=== PATIENT | female | born 1940 | race Caucasian/White ===

== ENCOUNTER 2022-02-20 02:55 | Day surgery (SDC) | payer OTHER ==
[2022-02-21] MEDS ORDERED: ATORVASTATIN CA20 MG PO (18:54)
[2022-02-21] MEDS ORDERED: Lisinopril2.5 MG PO (18:54)
[2022-02-21] MEDS ORDERED: MONDOXYNE NL100 MG PO (18:54)
[2022-02-21] MEDS ORDERED: Cleocin HCl150 MG (18:54)
[2022-02-21] MEDS ORDERED: LATANOPROST2.5 M3 (18:55)
[2022-02-21] MEDS ORDERED: SPIRONOLACTONE25 MG PO (18:55)
[2022-02-21] MEDS ORDERED: DORZOLAMIDE-TIM10 ML (18:55)
[2022-02-21] MEDS ORDERED: BRIMONIDINE TART5 M2 (18:55)
[2022-02-21] MEDS ORDERED: SOAANZ20 M1 PO (18:55)
[2022-02-21] MEDS ORDERED: OMEP20ER (18:55)
== END 2022-02-20 23:30 | disposition home or self-care (01) ==
LOC: WOUND 02:55
DX: L73.2 Hidradenitis suppurativa (principal); L98.412 Non-pressure chronic ulcer of buttock with fat layer exposed; Z88.8 Allergy status to other drugs, medicaments and biological substances; J45.909 Unspecified asthma, uncomplicated; E78.2 Mixed hyperlipidemia; Z95.2 Presence of prosthetic heart valve
CPT/HCPCS: G0463

== ENCOUNTER 2022-02-21 18:35 | Inpatient (IN) | payer OTHER ==
[~2022-02-21] VITALS: Ht 152.4 cm; Wt 47.6 kg
--- NOTE | 2022-02-21 00:55 | NUR ---
REPORT RECIEVED FROM ERICK AND AWAITING PT T/F TO ROOM 329.
[2022-02-21] MEDS ORDERED: Cleocin HCl150 MG (18:54)
[2022-02-21] MEDS ORDERED: ATORVASTATIN CA20 MG PO (18:54)
[2022-02-21] MEDS ORDERED: MONDOXYNE NL100 MG PO (18:54)
[2022-02-21] MEDS ORDERED: Lisinopril2.5 MG PO (18:54)
[2022-02-21] MEDS ORDERED: SPIRONOLACTONE25 MG PO (18:55)
[2022-02-21] MEDS ORDERED: OMEP20ER (18:55)
[2022-02-21] MEDS ORDERED: BRIMONIDINE TART5 M2 (18:55)
[2022-02-21] MEDS ORDERED: DORZOLAMIDE-TIM10 ML (18:55)
[2022-02-21] MEDS ORDERED: LATANOPROST2.5 M3 (18:55)
[2022-02-21] MEDS ORDERED: SOAANZ20 M1 PO (18:55)
[2022-02-21 19:25] LABS: BASOPHILS PERCENT AUTO 1 % (0-2); EOSINOPHILS ABSOLUTE AUTO 0.16 K/mm3 (0.00-0.68); EOSINOPHILS PERCENT AUTO 1 % (0-6); Hematocrit 23.2 % (33.0-51.0); Hemoglobin 7.1 g/dL (11.5-16.0); IMMATURE GRAN ABSOLUTE AUTO 0.16 K/mm3 (0.00-0.10); IMMATURE GRAN PERCENT AUTO 1 % (0-1); LYMPHOCYTES ABSOLUTE AUTO 0.81 K/mm3 (0.84-5.20); LYMPHOCYTES PERCENT AUTO 5 % (21-46); MONOCYTES ABSOLUTE AUTO 0.95 K/mm3 (0.16-1.47); MONOCYTES PERCENT AUTO 6 % (4-13); Mean Corpuscular HGB 26.4 pg (26.0-34.0); Mean Corpuscular HGB Conc 30.6 g/dL (31.5-36.5); Mean Corpuscular Volume 86 fL (80-100); NEUTROPHILS ABSOLUTE AUTO 14.33 K/mm3 (1.96-9.15); NEUTROPHILS PERCENT AUTO 87 % (41-73); Platelet Count 585 K/mm3 (150-400); RDW Coefficient Variation 16.7 % (11.7-14.2); RDW Standard Deviation 52.1 fL (35.1-46.3); Red Blood Cell Count 2.69 M/mm3 (3.80-5.20); White Blood Cell Count 16.51 K/mm3 (4.00-11.30)
[2022-02-21 19:27] LABS: Bun/Creatinine Ratio 37.3 (12.0-20.0); Calcium, Blood 8.6 mg/dL (8.5-10.1); Creatinine, Blood 1.42 mg/dL (0.40-1.00); Potassium, Blood 4.3 mmol/L (3.5-5.5)
[2022-02-21 19:52] LABS: Percent Saturation 9.1 % (15.0-50.0)
[2022-02-22 02:13] LABS: Source, Urine Clean Catch
[2022-02-22 02:16] LABS: Appearance, Urine Clear (Clear); Bilirubin, Urine Neg (Neg); Blood, Urine Neg (Neg); Glucose Qualitative, Urine Neg (Neg); Ketones, Urine Neg (Neg); Leukocyte Esterase, Urine 1+ (Neg); Nitrite, Urine Neg (Neg); Protein, Urine Neg (Neg); Urobilinogen, Urine NORM (Normal)
[2022-02-22 02:22] LABS: Color, Urine Pale Yellow (P-Yellow)
[2022-02-22 02:23] LABS: Red Blood Cells, Urine 0-2 /hpf (0-2); Squamous Epithelial Cells Rare /hpf (Few); White Blood Cells, Urine 0-2 /hpf (0-5)
[2022-02-22 02:24] LABS: Bacteria Many /hpf
--- NOTE | 2022-02-22 05:59 | NUR ---
T/F AND SUMMARY: PT T/F TO ROOM 329 AT 0137 VIA GURNEY. SHE'S A/OX4, WAS ORIENTED TO ROOM AND CALL SYSTEM AND IS PLEASANT/COOPERATIVE W/CARE. PT IS BLIND BUT CAN SEE SILHOUETTES SO CALL LIGHT WAS ALTERED FOR EASE OF USE. SHE'S UP W/FWW AND SBA FOR SAFETY. PT HAS PUREWIC CATHETER IN PLACE THAT REMAINS PATENT TO SUCTION FOR SBD PREVENTION AND PAIN W/MOBILITY. SHE'S HAD HIDRADENITIS SUPPURITIVA TO HER BUTTOCKS/RECTUM FOR X8 YEARS W/OPEN AREAS THAT ARE WEAPING HEMOSANGUINOUS DRAINAGE AT PRESENT. FENTANYL PRN WAS RECIEVED FOR PAIN CONTROL AND PT REPOSITIONS SELF FOR IMPROVED COMFORT. NONADHERENT DX WAS CHANGED PRN W/MODONNA PANTIES REPLACED AND LINEN CHANGED PRN. NS WAS COMMENCED AND IV ABX + 1UNIT PRBC'S WERE RECIEVED IN ER. NO ACUTE CHANGES, VSS/AFEBRILE. WCTM AND REPORT TO DAY RN.
[2022-02-22 06:20] LABS: BASOPHILS ABSOLUTE AUTO 0.06 K/mm3 (0.00-0.23); BASOPHILS PERCENT AUTO 1 % (0-2); EOSINOPHILS ABSOLUTE AUTO 0.14 K/mm3 (0.00-0.68); EOSINOPHILS PERCENT AUTO 1 % (0-6); Hematocrit 23.2 % (33.0-51.0); Hemoglobin 7.4 g/dL (11.5-16.0); IMMATURE GRAN ABSOLUTE AUTO 0.11 K/mm3 (0.00-0.10); IMMATURE GRAN PERCENT AUTO 1 % (0-1); LYMPHOCYTES ABSOLUTE AUTO 0.48 K/mm3 (0.84-5.20); LYMPHOCYTES PERCENT AUTO 4 % (21-46); MONOCYTES ABSOLUTE AUTO 0.81 K/mm3 (0.16-1.47); MONOCYTES PERCENT AUTO 8 % (4-13); Mean Corpuscular HGB 27.2 pg (26.0-34.0); Mean Corpuscular HGB Conc 31.9 g/dL (31.5-36.5); Mean Corpuscular Volume 85 fL (80-100); Mean Platelet Volume 7.8 fL (9.1-12.4); NEUTROPHILS PERCENT AUTO 85 % (41-73); Platelet Count 429 K/mm3 (150-400); RDW Coefficient Variation 16.1 % (11.7-14.2); RDW Standard Deviation 49.3 fL (35.1-46.3); Red Blood Cell Count 2.72 M/mm3 (3.80-5.20)
[2022-02-22 06:35] LABS: Albumin, Blood 1.7 g/dL (3.4-5.0); Albumin/Globulin Ratio 0.3 (0.8-1.8); Bilirubin, Total 0.2 mg/dL (0.1-1.0); Calcium, Blood 8.3 mg/dL (8.5-10.1); Potassium, Blood 3.9 mmol/L (3.5-5.5); Total Protein, Blood 6.7 g/dL (6.4-8.2)
[2022-02-22] MEDS ORDERED: ASCO500 PO (10:04)
[2022-02-22] MEDS ORDERED: ASPIR 8181 M1 PO (10:05)
[2022-02-22] MEDS ORDERED: Norco 5-325 Ta1 EACH PO (10:06)
[2022-02-22] MEDS ORDERED: Ferrous Sulfat324 MG PO (10:07)
[2022-02-22] MEDS ORDERED: METR59TL TOP (10:08)
--- NOTE | 2022-02-22 18:37 | NUR ---
PATIENT A/OX4, UP WITH 1 ASSIST AND FWW TO RESTROOM. VSS, ON RA. 20G IV TO R AC WNL AND SL. TOLERATING REGULAR DIET. DRESSINGS TO BUTTOCKS WOUND CHANGED X1 THIS AFTERNOON USING NONADHERENT DRESSING. STRESS INCONTINENCE WHEN SHE GETS UP, WEARS A PAD. SMALL BM THIS AM. LEGALLY BLIND AND NEEDS ASSISTANCE WITH MEAL SET UP, BUT IS ABLE TO FEED HERSELF. RECEIVING MAXIPIME TO TREAT CELLULITIS. Q4 HOUR FENTANYL USED TO TREAT BUTTOCK PAIN WITH STATED RELIEF. VERY PLEASANT AND COOPERATIVE WITH CARE. CALLS APPROPRIATELY FOR ASSISTANCE.
[2022-02-22 22:15] LABS: Vancomycin, Random 7.5 ug/mL
--- NOTE | 2022-02-23 05:09 | NUR ---
PT MEDICATED FOR PAIN THIS SHIFT, C/O HEARTBURN/NAUSEA; ZOFRAN GIVEN X1. BUTTOCK WOUNDS CLEANSED WITH SKINTEGRITY, REDRESSED WITH FOAM AND NONSTICK PADS; MESH PANTIES TO KEEP IN PLACE. 1-ASSIST TO BSC. PT IS LEGALLY BLIND AND LIVES AT [facility].
[2022-02-23 06:02] LABS: BASOPHILS ABSOLUTE AUTO 0.08 K/mm3 (0.00-0.23); BASOPHILS PERCENT AUTO 1 % (0-2); EOSINOPHILS ABSOLUTE AUTO 0.27 K/mm3 (0.00-0.68); EOSINOPHILS PERCENT AUTO 3 % (0-6); Hematocrit 24.2 % (33.0-51.0); Hemoglobin 7.4 g/dL (11.5-16.0); IMMATURE GRAN ABSOLUTE AUTO 0.12 K/mm3 (0.00-0.10); IMMATURE GRAN PERCENT AUTO 1 % (0-1); LYMPHOCYTES ABSOLUTE AUTO 0.51 K/mm3 (0.84-5.20); LYMPHOCYTES PERCENT AUTO 5 % (21-46); MONOCYTES ABSOLUTE AUTO 0.74 K/mm3 (0.16-1.47); MONOCYTES PERCENT AUTO 7 % (4-13); Mean Corpuscular HGB 26.6 pg (26.0-34.0); Mean Corpuscular HGB Conc 30.6 g/dL (31.5-36.5); Mean Corpuscular Volume 87 fL (80-100); Mean Platelet Volume 7.8 fL (9.1-12.4); NEUTROPHILS PERCENT AUTO 84 % (41-73); Platelet Count 408 K/mm3 (150-400); RDW Coefficient Variation 16.4 % (11.7-14.2); RDW Standard Deviation 51.9 fL (35.1-46.3); Red Blood Cell Count 2.78 M/mm3 (3.80-5.20); White Blood Cell Count 10.82 K/mm3 (4.00-11.30)
[2022-02-23 06:30] LABS: Albumin, Blood 1.7 g/dL (3.4-5.0); Albumin/Globulin Ratio 0.3 (0.8-1.8); Bilirubin, Total 0.3 mg/dL (0.1-1.0); Bun/Creatinine Ratio 34.3 (12.0-20.0); Calcium, Blood 8.4 mg/dL (8.5-10.1); Creatinine, Blood 1.02 mg/dL (0.40-1.00); Globulin, Blood 4.9 g/dL (2.2-4.0); Potassium, Blood 3.8 mmol/L (3.5-5.5); Total Protein, Blood 6.6 g/dL (6.4-8.2)
[2022-02-23] MEDS ORDERED: SULTRIDS PO (12:19)
--- NOTE | 2022-02-23 15:05 | NUR ---
DC HOME. PIV DC'D WITH CATH TIP INTACT. SITE WITH NO REDNESS OR SWELLING. COCCYX WOUND CLEANED & DRESSING CHANGED. DC INSTRUCTIONS GIVEN TO PT WITH SON PRESENTIN THE ROOM. ALL QUESTIONS & CONCERNS ADDRESSED. PT WHEELED OUT TO TRANSPORTATION PROVIDED BY HER ASSISTED LIVING FACILITY VIA HER OWN W/C ACCOMPANIED BY HER SON.
== END 2022-02-23 15:04 | disposition home or self-care (01) | DRG 871 ==
LOC: ER 18:35 → MEDS 22:46
PROVIDERS: Family Medicine; Student in an Organized Health Care Education/Training Program; ADMIT Internal Medicine
PROC: 3E03329 Introduction of Other Anti-infective into Peripheral Vein, Percutaneous Approach (ICD-10-PCS; principal; 2022-02-21)
PROC: 30233N1 Transfusion of Nonautologous Red Blood Cells into Peripheral Vein, Percutaneous Approach (ICD-10-PCS; 2022-02-21)
DX: A41.9 Sepsis, unspecified organism (principal); K65.9 Peritonitis, unspecified; N17.9 Acute kidney failure, unspecified; L03.317 Cellulitis of buttock; R65.20 Severe sepsis without septic shock; L73.2 Hidradenitis suppurativa; D50.9 Iron deficiency anemia, unspecified; H54.8 Legal blindness, as defined in USA; D72.829 Elevated white blood cell count, unspecified; E86.0 Dehydration; I10 Essential (primary) hypertension; K64.8 Other hemorrhoids; E78.5 Hyperlipidemia, unspecified; K21.9 Gastro-esophageal reflux disease without esophagitis; Z95.4 Presence of other heart-valve replacement; Z85.3 Personal history of malignant neoplasm of breast; Z88.8 Allergy status to other drugs, medicaments and biological substances; Z79.82 Long term (current) use of aspirin; Z79.899 Other long term (current) drug therapy
CPT/HCPCS: 36415; 36430; 74177; 80048; 80053; 80202; 81001; 82272; 82728; 83540; 83550; 83605; 85025; 86850; 86900; 86901; 86923; 87040; 87077; 87086; 87186; 96365; 96375; 99284-25; A9270; G0463; J0692; J2405; J3010; J3370; J7030; J7060; P9016; Q9967

== ENCOUNTER → 2022-02-21 | Outpatient (CLI) | payer OTHER ==
[~2022-02-21] MED LIST: ASCO500 PO; ASPIR 8181 M1 PO; ATORVASTATIN CA20 MG PO; BRIMONIDINE TART5 M2; Cleocin HCl150 MG; DORZOLAMIDE-TIM10 ML; Ferrous Sulfat324 MG PO; LATANOPROST2.5 M3; Lisinopril2.5 MG PO; METR59TL TOP; MONDOXYNE NL100 MG PO; Norco 5-325 Ta1 EACH PO; OMEP20ER; SOAANZ20 M1 PO; SPIRONOLACTONE25 MG PO; SULTRIDS PO
[2022-02-21 15:40] LABS: BASOPHILS ABSOLUTE AUTO 0.09 K/mm3 (0.00-0.23); BASOPHILS PERCENT AUTO 1 % (0-2); EOSINOPHILS PERCENT AUTO 1 % (0-6); IMMATURE GRAN ABSOLUTE AUTO 0.14 K/mm3 (0.00-0.10); IMMATURE GRAN PERCENT AUTO 1 % (0-1); LYMPHOCYTES ABSOLUTE AUTO 0.63 K/mm3 (0.84-5.20); LYMPHOCYTES PERCENT AUTO 4 % (21-46); MONOCYTES ABSOLUTE AUTO 1.03 K/mm3 (0.16-1.47); MONOCYTES PERCENT AUTO 7 % (4-13); Mean Corpuscular HGB 26.1 pg (26.0-34.0); Mean Corpuscular HGB Conc 30.4 g/dL (31.5-36.5); Mean Corpuscular Volume 86 fL (80-100); Mean Platelet Volume 7.8 fL (9.1-12.4); NEUTROPHILS ABSOLUTE AUTO 13.34 K/mm3 (1.96-9.15); NEUTROPHILS PERCENT AUTO 86 % (41-73); Platelet Count 553 K/mm3 (150-400); RDW Coefficient Variation 16.5 % (11.7-14.2); RDW Standard Deviation 51.3 fL (35.1-46.3); Red Blood Cell Count 2.68 M/mm3 (3.80-5.20); White Blood Cell Count 15.43 K/mm3 (4.00-11.30)
== END ==
LOC: LAB SHORT 14:55
PROVIDERS: Physician Assistant
DX: D64.9 Anemia, unspecified (principal)
CPT/HCPCS: 36415; 85025

== ENCOUNTER 2022-03-06 00:39 | Day surgery (SDC) | payer OTHER ==
[~2022-03-06 00:39] MED LIST changes: +ATOR40TA PO; -ATORVASTATIN CA20 MG PO; -OMEP20ER; +OMEP20ER PO
== END 2022-03-06 23:07 | disposition home or self-care (01) ==
LOC: WOUND
DX: L73.2 Hidradenitis suppurativa (principal); L98.412 Non-pressure chronic ulcer of buttock with fat layer exposed
CPT/HCPCS: G0463

== ENCOUNTER 2022-03-23 13:33 | Inpatient (IN) | payer OTHER ==
[~2022-03-23] VITALS: Ht 149.9 cm; Wt 50.8 kg
[2022-03-23 14:48] LABS: BASOPHILS ABSOLUTE AUTO 0.04 K/mm3 (0.00-0.23); BASOPHILS PERCENT AUTO 0 % (0-2); EOSINOPHILS ABSOLUTE AUTO 0.02 K/mm3 (0.00-0.68); EOSINOPHILS PERCENT AUTO 0 % (0-6); Hematocrit 25.8 % (33.0-51.0); Hemoglobin 8.1 g/dL (11.5-16.0); IMMATURE GRAN ABSOLUTE AUTO 0.09 K/mm3 (0.00-0.10); IMMATURE GRAN PERCENT AUTO 1 % (0-1); LYMPHOCYTES ABSOLUTE AUTO 0.33 K/mm3 (0.84-5.20); LYMPHOCYTES PERCENT AUTO 2 % (21-46); MONOCYTES ABSOLUTE AUTO 0.92 K/mm3 (0.16-1.47); MONOCYTES PERCENT AUTO 6 % (4-13); Mean Corpuscular HGB 27.3 pg (26.0-34.0); Mean Corpuscular HGB Conc 31.4 g/dL (31.5-36.5); Mean Corpuscular Volume 87 fL (80-100); Mean Platelet Volume 8.5 fL (9.1-12.4); NEUTROPHILS ABSOLUTE AUTO 13.52 K/mm3 (1.96-9.15); NEUTROPHILS PERCENT AUTO 91 % (41-73); Platelet Count 413 K/mm3 (150-400); RDW Standard Deviation 54.6 fL (35.1-46.3); Red Blood Cell Count 2.97 M/mm3 (3.80-5.20); White Blood Cell Count 14.92 K/mm3 (4.00-11.30)
[2022-03-23 15:07] LABS: Albumin, Blood 2.2 g/dL (3.4-5.0); Albumin/Globulin Ratio 0.3 (0.8-1.8); Bilirubin, Total 0.2 mg/dL (0.1-1.0); Bun/Creatinine Ratio 56.4 (12.0-20.0); Calcium, Blood 8.6 mg/dL (8.5-10.1); Creatinine, Blood 2.2 mg/dL (0.40-1.00); Globulin, Blood 6.3 g/dL (2.2-4.0); Potassium, Blood 5.1 mmol/L (3.5-5.5); Total Protein, Blood 8.5 g/dL (6.4-8.2)
[2022-03-23 15:27] LABS: Influenza A, PCR NEGATIVE (NEGATIVE); Influenza B, PCR NEGATIVE (NEGATIVE); Resp Syncytial Virus, PCR NEGATIVE (NEGATIVE); SARS-Cov-2 (COVID-19) PCR, MMC NEGATIVE (NEGATIVE)
--- NOTE | 2022-03-23 19:29 | NUR ---
PT RECEIVED TO ROOM FROM ER. SON WITH PT. SHE PLEASANT A/O X3, BLIND. LUNGS CLEAR, RESP EASY, UNLABORED. ON R.A. CALL LITE IN REACH, CALLS APPROP
[2022-03-24 05:14] LABS: BASOPHILS ABSOLUTE AUTO 0.03 K/mm3 (0.00-0.23); BASOPHILS PERCENT AUTO 0 % (0-2); EOSINOPHILS ABSOLUTE AUTO 0.06 K/mm3 (0.00-0.68); EOSINOPHILS PERCENT AUTO 1 % (0-6); Hematocrit 24.3 % (33.0-51.0); Hemoglobin 7.5 g/dL (11.5-16.0); IMMATURE GRAN ABSOLUTE AUTO 0.04 K/mm3 (0.00-0.10); IMMATURE GRAN PERCENT AUTO 0 % (0-1); LYMPHOCYTES ABSOLUTE AUTO 0.23 K/mm3 (0.84-5.20); LYMPHOCYTES PERCENT AUTO 2 % (21-46); MONOCYTES PERCENT AUTO 6 % (4-13); Mean Corpuscular HGB 26.7 pg (26.0-34.0); Mean Corpuscular HGB Conc 30.9 g/dL (31.5-36.5); Mean Corpuscular Volume 87 fL (80-100); Mean Platelet Volume 8.2 fL (9.1-12.4); NEUTROPHILS ABSOLUTE AUTO 9.83 K/mm3 (1.96-9.15); NEUTROPHILS PERCENT AUTO 90 % (41-73); Platelet Count 380 K/mm3 (150-400); RDW Coefficient Variation 16.8 % (11.7-14.2); RDW Standard Deviation 52.8 fL (35.1-46.3); Red Blood Cell Count 2.81 M/mm3 (3.80-5.20); White Blood Cell Count 10.89 K/mm3 (4.00-11.30)
[2022-03-24 05:51] LABS: Bun/Creatinine Ratio 68.1 (12.0-20.0); Calcium, Blood 8.2 mg/dL (8.5-10.1); Creatinine, Blood 1.44 mg/dL (0.40-1.00); Magnesium, Blood 1.4 mg/dL (1.6-2.4); Potassium, Blood 4.2 mmol/L (3.5-5.5)
--- NOTE | 2022-03-24 13:53 | NUR ---
LAB RESULT [facility] FROM [facility] YESTERDAY, WAS POSITIVE, TODAY IS NEGATIVE LAB STATES WAS MISTAKE
--- NOTE | 2022-03-24 16:39 | NUR ---
CALLED DR MAGANA RE LAB CONCERNS ON [facility] BEING POSITIVE BY MISTAKE. DR SANTORO WILL SEE PT TOMORROW AND CHECK WOUND ISSUES.
--- NOTE | 2022-03-24 17:42 | NUR ---
PT PLEASANT TODAY. WAS INFORMED ON WOUND, HE WILL SEE TOMORROW. SHE HAS WORKED WITH PT AND OT TODAY. WALKED SOME ABOUT HALLS. SITTING ON HER BEHIND IS VERY PAINFUL FOR THAT MOMENT. SHE LAYS ON HER SIDE. ABD PADS PLACED NEARLY EVERY TIME SHE URINATES AT BSC. IS 1 ASST. STATES SEES WOUND CLINIC Q 2 WEEKS. THIS HAS BEEN ISSUE FOR ABOUT 15 YEARS. PIXS IN CHART. NO OTHER NEW CONCERNS NOTED. BED IN LOW POSITION, CALL LITE IN REACH. CALLS APPROP
[2022-03-24] MEDS ORDERED: TIMDOROPSO BOTHEYES (22:57)
[2022-03-24] MEDS ORDERED: Alphagan P5 ML BOTHEYES (22:57)
[2022-03-24] MEDS ORDERED: LATA.005SO BOTHEYES (23:10)
[2022-03-24] MEDS ORDERED: CLIN150 PO (23:11)
[2022-03-24] MEDS ORDERED: MONDOXYNE NL100 MG PO (23:14)
--- NOTE | 2022-03-25 05:06 | NUR ---
FORK TRUCK OPERATOR SUMMARY ADMITTED FOR DEHYDRATION/SANDRA. PT IS FULL CODE. SHE IS ALERT AND ORIENTED, PLEASANT WITH CARE. MEDICATED WITH SCHEDULED PAIN MEDICATION BUT PT REPORTS MORE PAIN TONIGHT - TYLENOL OFFERED AND REFUSED. I INFORMED THE PT THAT I COULD CALL FOR A DIFFERENT OPTION BUT SHE REFUSED THIS WELL. MEDICATED X1 WITH ZOFRAN FOR NAUSEA. 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 SHE IS A 1[facility] TO [facility] BUT MOVES SLOW DUE TO THE PAIN.
[2022-03-25 10:56] LABS: BASOPHILS ABSOLUTE AUTO 0.04 K/mm3 (0.00-0.23); BASOPHILS PERCENT AUTO 0 % (0-2); EOSINOPHILS PERCENT AUTO 1 % (0-6); Hematocrit 25.1 % (33.0-51.0); Hemoglobin 7.6 g/dL (11.5-16.0); IMMATURE GRAN ABSOLUTE AUTO 0.05 K/mm3 (0.00-0.10); IMMATURE GRAN PERCENT AUTO 1 % (0-1); LYMPHOCYTES ABSOLUTE AUTO 0.32 K/mm3 (0.84-5.20); LYMPHOCYTES PERCENT AUTO 3 % (21-46); MONOCYTES ABSOLUTE AUTO 0.61 K/mm3 (0.16-1.47); MONOCYTES PERCENT AUTO 6 % (4-13); Mean Corpuscular HGB Conc 30.3 g/dL (31.5-36.5); Mean Corpuscular Volume 89 fL (80-100); Mean Platelet Volume 8.1 fL (9.1-12.4); NEUTROPHILS ABSOLUTE AUTO 8.48 K/mm3 (1.96-9.15); NEUTROPHILS PERCENT AUTO 88 % (41-73); Platelet Count 311 K/mm3 (150-400); RDW Coefficient Variation 17.4 % (11.7-14.2); RDW Standard Deviation 57.2 fL (35.1-46.3); Red Blood Cell Count 2.81 M/mm3 (3.80-5.20)
[2022-03-25 11:14] LABS: Albumin, Blood 1.9 g/dL (3.4-5.0); Albumin/Globulin Ratio 0.4 (0.8-1.8); Bilirubin, Total 0.1 mg/dL (0.1-1.0); Bun/Creatinine Ratio 45.4 (12.0-20.0); Calcium, Blood 8.3 mg/dL (8.5-10.1); Creatinine, Blood 0.9 mg/dL (0.40-1.00); Globulin, Blood 5.2 g/dL (2.2-4.0); Potassium, Blood 3.9 mmol/L (3.5-5.5); Total Protein, Blood 7.1 g/dL (6.4-8.2)
--- NOTE | 2022-03-25 16:02 | NUR ---
PER DR PANDEY, NILS PEDROZA IVF. DONE.
--- NOTE | 2022-03-25 17:49 | NUR ---
PT PLEASANT TODAY, PAIN MANAGED WITH [facility]. DR STOPPED IVF TODAY. HOME EYEDROPS SENT TO [facility] FOR LABELING. CONTINUES TO AMBULATE WITH SBA. NEEDS CONTINUAL SUPPORT TO PLACE ABD PADS ON BOTTOM. DR VISUALIZED PICS AND IS AWARE PT AND SON ATTEMPTING TO OBTAIN BETTER HOME CARE OR ATC CARE FOR THIS ISSUE. NO NEW CONCERNS NOTED. BED IN LOW POSITION CALL LITE IN REACH CALLS APPROP
[2022-03-26 05:43] LABS: BASOPHILS ABSOLUTE AUTO 0.05 K/mm3 (0.00-0.23); BASOPHILS PERCENT AUTO 0 % (0-2); EOSINOPHILS ABSOLUTE AUTO 0.27 K/mm3 (0.00-0.68); EOSINOPHILS PERCENT AUTO 2 % (0-6); Hematocrit 22.1 % (33.0-51.0); Hemoglobin 6.8 g/dL (11.5-16.0); IMMATURE GRAN ABSOLUTE AUTO 0.05 K/mm3 (0.00-0.10); IMMATURE GRAN PERCENT AUTO 0 % (0-1); LYMPHOCYTES ABSOLUTE AUTO 0.45 K/mm3 (0.84-5.20); LYMPHOCYTES PERCENT AUTO 4 % (21-46); MONOCYTES ABSOLUTE AUTO 0.76 K/mm3 (0.16-1.47); MONOCYTES PERCENT AUTO 7 % (4-13); Mean Corpuscular HGB 27.3 pg (26.0-34.0); Mean Corpuscular HGB Conc 30.8 g/dL (31.5-36.5); Mean Corpuscular Volume 89 fL (80-100); Mean Platelet Volume 8.3 fL (9.1-12.4); NEUTROPHILS ABSOLUTE AUTO 9.57 K/mm3 (1.96-9.15); NEUTROPHILS PERCENT AUTO 86 % (41-73); Platelet Count 340 K/mm3 (150-400); RDW Coefficient Variation 17.7 % (11.7-14.2); RDW Standard Deviation 57.1 fL (35.1-46.3); Red Blood Cell Count 2.49 M/mm3 (3.80-5.20); White Blood Cell Count 11.15 K/mm3 (4.00-11.30)
[2022-03-26 06:05] LABS: Alanine Aminotransfer (ALT/SGP 7 U/L (12-78); Albumin, Blood 1.7 g/dL (3.4-5.0); Albumin/Globulin Ratio 0.4 (0.8-1.8); Alk Phos 64 U/L (50-136); Anion Gap 6 mmol/L (6-16); Aspartate Aminotrans (AST/SGOT 15 U/L (12-37); Bilirubin, Direct <0.1 mg/dL (0.0-0.3); Bilirubin, Indirect Unable to Calculate mg/dL (0.1-0.7); Bilirubin, Total <0.1 mg/dL (0.1-1.0); Blood Urea Nitrogen 28 mg/dL (8-24); Bun/Creatinine Ratio 37.4 (12.0-20.0); CO2, Blood 16 mmol/L (21-32); Chloride, Blood 121 mmol/L (98-108); Creatinine, Blood 0.75 mg/dL (0.40-1.00); Globulin, Blood 4.8 g/dL (2.2-4.0); Glomerular Filtration Rate 80 (60-); Glucose, Blood 96 mg/dL (70-99); Potassium, Blood 4.6 mmol/L (3.5-5.5); Sodium, Blood 143 mmol/L (136-145); Total Protein, Blood 6.5 g/dL (6.4-8.2)
[2022-03-26 16:23] LABS: BASOPHILS ABSOLUTE AUTO 0.07 K/mm3 (0.00-0.23); BASOPHILS PERCENT AUTO 1 % (0-2); EOSINOPHILS ABSOLUTE AUTO 0.24 K/mm3 (0.00-0.68); EOSINOPHILS PERCENT AUTO 2 % (0-6); Hemoglobin 7.3 g/dL (11.5-16.0); IMMATURE GRAN ABSOLUTE AUTO 0.04 K/mm3 (0.00-0.10); IMMATURE GRAN PERCENT AUTO 0 % (0-1); LYMPHOCYTES ABSOLUTE AUTO 0.41 K/mm3 (0.84-5.20); LYMPHOCYTES PERCENT AUTO 3 % (21-46); MONOCYTES ABSOLUTE AUTO 0.91 K/mm3 (0.16-1.47); MONOCYTES PERCENT AUTO 8 % (4-13); Mean Corpuscular HGB 26.9 pg (26.0-34.0); Mean Corpuscular HGB Conc 30.4 g/dL (31.5-36.5); Mean Corpuscular Volume 89 fL (80-100); Mean Platelet Volume 8.1 fL (9.1-12.4); NEUTROPHILS ABSOLUTE AUTO 10.38 K/mm3 (1.96-9.15); NEUTROPHILS PERCENT AUTO 86 % (41-73); Platelet Count 321 K/mm3 (150-400); RDW Coefficient Variation 17.8 % (11.7-14.2); RDW Standard Deviation 57.1 fL (35.1-46.3); Red Blood Cell Count 2.71 M/mm3 (3.80-5.20); White Blood Cell Count 12.05 K/mm3 (4.00-11.30)
--- NOTE | 2022-03-26 17:15 | NUR ---
SHIFT SUMMARY PT AWAKE DURING SHIFT REPORT. A&O, LYING TO L SIDE. PT REPORTED BEING BLIND, ALSO HAVING AN AUTOIMMUNE DISEASE CAUSING WOUNDS TO BUTTOCKS AND INNER THIGHS. PER REPORT, PT IS CONTINENT OF BLADDER, BUT INCONTINENT OF BOWELS. MEDICATED PER EMAR FOR C/O PAIN TO BACK, BUTTOCKS, AND SHOULDERS. PT ALSO C/O NAUSEA; MEDICATED PER EMAR AND PT REQUEST. PT ATE WELL AT BREAKFAST, BUT NOT EATING MUCH AT LUNCH. DR PANDEY IN TO SEE PT AND DISCUSS PLAN OF CARE. PT WAS TO D/C BACK TO [facility] TODAY, BUT WILL NOW NEED 1 UNIT PRBC'S AND D/C TOMORROW. PT AND SON AWARE. PT UP TO SHOWER THIS AM, BED LINENS CHANGED. DRSG'S TO BUTTOCKS CHANGED EACH TIME UP TO BSC AND AFTER SHOWER. ONLY MINIMAL DRAINAGE NOTED EACH TIME, BUT PT INSISTANT ON NEW DRSGS EACH TIME. 1P ASSIST TO STAND/PIVOT TO BSC. 1P SBA USING FWW TO BTHRM FOR SHOWER. PT'S SON IN TO VISIT MOST OF THE DAY. NO FURTHER NEEDS AT THIS TIME. CALL LT IN REACH.
--- NOTE | 2022-03-27 05:25 | NUR ---
PT is weak anemic & she had N & V sm amt. Phenergan 12.5 mg IV helpful for nausea & PT requests cheese & crackers & ate 75% with some broth. She had blood transfusion & tolerated 1 unit PRBC well. PT plans to DC home with assist today, she says she has help there.
[2022-03-27 05:56] LABS: BASOPHILS ABSOLUTE AUTO 0.05 K/mm3 (0.00-0.23); BASOPHILS PERCENT AUTO 1 % (0-2); EOSINOPHILS ABSOLUTE AUTO 0.25 K/mm3 (0.00-0.68); EOSINOPHILS PERCENT AUTO 2 % (0-6); Hematocrit 24.1 % (33.0-51.0); Hemoglobin 7.6 g/dL (11.5-16.0); IMMATURE GRAN ABSOLUTE AUTO 0.05 K/mm3 (0.00-0.10); IMMATURE GRAN PERCENT AUTO 1 % (0-1); LYMPHOCYTES ABSOLUTE AUTO 0.47 K/mm3 (0.84-5.20); LYMPHOCYTES PERCENT AUTO 5 % (21-46); MONOCYTES ABSOLUTE AUTO 0.78 K/mm3 (0.16-1.47); MONOCYTES PERCENT AUTO 8 % (4-13); Mean Corpuscular HGB 27.7 pg (26.0-34.0); Mean Corpuscular HGB Conc 31.5 g/dL (31.5-36.5); Mean Corpuscular Volume 88 fL (80-100); Mean Platelet Volume 8.1 fL (9.1-12.4); NEUTROPHILS ABSOLUTE AUTO 8.62 K/mm3 (1.96-9.15); NEUTROPHILS PERCENT AUTO 84 % (41-73); Platelet Count 280 K/mm3 (150-400); RDW Coefficient Variation 17.3 % (11.7-14.2); RDW Standard Deviation 55.9 fL (35.1-46.3); Red Blood Cell Count 2.74 M/mm3 (3.80-5.20); White Blood Cell Count 10.22 K/mm3 (4.00-11.30)
[2022-03-27 06:21] LABS: Bun/Creatinine Ratio 25.5 (12.0-20.0); Calcium, Blood 8.3 mg/dL (8.5-10.1); Creatinine, Blood 0.78 mg/dL (0.40-1.00); Potassium, Blood 4.6 mmol/L (3.5-5.5)
--- NOTE | 2022-03-27 14:25 | NUR ---
PT IS A&O, PLEASANT AND CO-OP, READY TO GO HOME THIS AM. PT RECEIVED 1U PRBC'S LAST NOC, TOLERATED WELL AND FEELING BETTER. DR MILTON IN TO SEE PT THIS MORNING AND DISCUSSED PLAN OF CARE. PT REPORTING THAT SHE HAS PLENTY OF HELP AT HOME TO ASSIST. 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 PT'S SON WELL IN TO VISIT AND ASSIST NEEDED. PT TOLERATING DIET WELL TODAY AND REPORTING NO N/V AT ALL. NO NAUSEA MEDICATION NEEDED TO PRESENT THIS SHIFT. D/C ORDERS IN AND MEDS FAXED TO [facility] PER SON'S REQUEST. PT UP TO [facility] WITH 1P SBA. DENIES FURTHER NEEDS AT THIS TIME. CALL LT IN REACH.
[2022-03-27] MEDS ORDERED: ONDA4ODT MM (14:56)
[2022-03-27] MEDS ORDERED: LEVOFLOXACIN250 M1 PO (15:56)
== END 2022-03-27 16:06 | disposition home health service (06) | DRG 872 ==
LOC: ER 13:33 → MEDS 16:08 → ER 18:49 → MEDS 18:58 → ER 18:58 → MEDS 19:00
PROVIDERS: Emergency Medicine; ADMIT Internal Medicine
PROC: 30233N1 Transfusion of Nonautologous Red Blood Cells into Peripheral Vein, Percutaneous Approach (ICD-10-PCS; principal; 2022-03-26)
PROC: 3E0DX29 Introduction of Other Anti-infective into Mouth and Pharynx, External Approach (ICD-10-PCS; 2022-03-26)
DX: A41.9 Sepsis, unspecified organism (principal); N17.9 Acute kidney failure, unspecified; E87.1 Hypo-osmolality and hyponatremia; E87.2 Acidosis; I50.32 Chronic diastolic (congestive) heart failure; I13.0 Hypertensive heart and chronic kidney disease with heart failure and stage 1 through stage 4 chronic kidney disease, or unspecified chronic kidney disease; H54.8 Legal blindness, as defined in USA; Z20.822 Contact with and (suspected) exposure to COVID-19; E86.0 Dehydration; R11.2 Nausea with vomiting, unspecified; H40.9 Unspecified glaucoma; I48.91 Unspecified atrial fibrillation; K21.9 Gastro-esophageal reflux disease without esophagitis; L89.159 Pressure ulcer of sacral region, unspecified stage; E87.5 Hyperkalemia; E78.2 Mixed hyperlipidemia; N18.9 Chronic kidney disease, unspecified; R65.20 Severe sepsis without septic shock; D63.1 Anemia in chronic kidney disease; B34.9 Viral infection, unspecified; M17.11 Unilateral primary osteoarthritis, right knee; I95.9 Hypotension, unspecified; L73.2 Hidradenitis suppurativa; Z95.4 Presence of other heart-valve replacement; Z98.890 Other specified postprocedural states; Z85.3 Personal history of malignant neoplasm of breast; Z90.49 Acquired absence of other specified parts of digestive tract; Z98.891 History of uterine scar from previous surgery; Z88.8 Allergy status to other drugs, medicaments and biological substances; Z79.82 Long term (current) use of aspirin; Z79.899 Other long term (current) drug therapy
CPT/HCPCS: 0241U; 36415; 36430; 71045; 80048; 80053; 80076; 83690; 83735; 84484; 85025; 86850; 86900; 86901; 86923; 93005; 93010; 97116; 97162; 97165; 97530; 97535; 99285-25; A9270; J1650; J2550; J3475; J7030; J7040; P9016

== ENCOUNTER 2022-05-03 06:33 | Day surgery (SDC) | payer OTHER ==
[~2022-05-03 06:33] MED LIST changes: +Alphagan P5 ML BOTHEYES; +CLIN150 PO; +LATA.005SO BOTHEYES; +LEVOFLOXACIN250 M1 PO; +ONDA4ODT MM; +TIMDOROPSO BOTHEYES
== END 2022-05-03 23:27 | disposition home or self-care (01) ==
LOC: WOUND 06:33
DX: L73.2 Hidradenitis suppurativa (principal); L98.412 Non-pressure chronic ulcer of buttock with fat layer exposed
CPT/HCPCS: G0463

== ENCOUNTER → 2022-05-24 | Outpatient (CLI) | payer OTHER | END | disposition home or self-care (01) | LOC: LAB SHORT 15:05 → LAB 15:05 | DX: L08.0 Pyoderma (principal) | CPT/HCPCS: 87070; 87205 ==

== ENCOUNTER 2022-06-21 02:20 | Day surgery (SDC) | payer OTHER | END 2022-06-21 22:49 | disposition home or self-care (01) | LOC: WOUND 02:20 | DX: L73.2 Hidradenitis suppurativa (principal); L98.412 Non-pressure chronic ulcer of buttock with fat layer exposed | CPT/HCPCS: G0463 ==

== ENCOUNTER → 2022-07-28 | Outpatient (CLI) | payer OTHER | LOC: LAB 10:08 → LAB SHORT 10:08 | DX: R30.0 Dysuria (principal) | CPT/HCPCS: 87077; 87086; 87186 ==

== ENCOUNTER 2022-08-11 01:13 | Day surgery (SDC) | payer OTHER | END 2022-08-11 23:06 | disposition home or self-care (01) | LOC: WOUND 01:13 | DX: L73.2 Hidradenitis suppurativa (principal); L98.412 Non-pressure chronic ulcer of buttock with fat layer exposed | CPT/HCPCS: G0463 ==

== ENCOUNTER 2022-09-13 04:44 | Day surgery (SDC) | payer OTHER ==
[~2022-09-13 04:44] MED LIST changes: +LISI5 PO
== END 2022-09-13 11:50 | disposition home or self-care (01) ==
LOC: ATC 04:44 → EDSTATUS 09:00 → ATC 09:00
DX: N18.9 Chronic kidney disease, unspecified (principal); D63.1 Anemia in chronic kidney disease; Z88.8 Allergy status to other drugs, medicaments and biological substances
CPT/HCPCS: 36430; 82784; 86850; 86900; 86901; 86923; J7040; P9016

== ENCOUNTER 2022-10-25 00:48 | Day surgery (SDC) | payer OTHER | END 2022-10-25 22:44 | disposition home or self-care (01) | LOC: WOUND 00:48 | DX: L73.2 Hidradenitis suppurativa (principal); L98.412 Non-pressure chronic ulcer of buttock with fat layer exposed | CPT/HCPCS: G0463 ==

== ENCOUNTER 2022-10-27 00:14 | Day surgery (SDC) | payer OTHER ==
[2022-10-27 10:17] LABS: Albumin, Blood 1.9 g/dL (3.4-5.0); Albumin/Globulin Ratio 0.3 (0.8-1.8); Bilirubin, Total 0.2 mg/dL (0.1-1.0); Bun/Creatinine Ratio 41.2 (12.0-20.0); Calcium, Blood 8.5 mg/dL (8.5-10.1); Creatinine, Blood 1.02 mg/dL (0.40-1.00); Globulin, Blood 6.2 g/dL (2.2-4.0); Potassium, Blood 4.3 mmol/L (3.5-5.5); Total Protein, Blood 8.1 g/dL (6.4-8.2)
[2022-10-27 10:18] LABS: BASOPHILS ABSOLUTE AUTO 0.06 K/mm3 (0.00-0.23); BASOPHILS PERCENT AUTO 1 % (0-2); EOSINOPHILS ABSOLUTE AUTO 0.06 K/mm3 (0.00-0.68); EOSINOPHILS PERCENT AUTO 1 % (0-6); Hemoglobin 6.7 g/dL (11.5-16.0); IMMATURE GRAN ABSOLUTE AUTO 0.03 K/mm3 (0.00-0.10); IMMATURE GRAN PERCENT AUTO 0 % (0-1); LYMPHOCYTES ABSOLUTE AUTO 0.67 K/mm3 (0.84-5.20); LYMPHOCYTES PERCENT AUTO 8 % (21-46); MONOCYTES ABSOLUTE AUTO 0.56 K/mm3 (0.16-1.47); MONOCYTES PERCENT AUTO 7 % (4-13); Mean Corpuscular HGB 28.2 pg (26.0-34.0); Mean Corpuscular HGB Conc 30.5 g/dL (31.5-36.5); Mean Corpuscular Volume 92 fL (80-100); Mean Platelet Volume 8.3 fL (9.1-12.4); NEUTROPHILS ABSOLUTE AUTO 6.73 K/mm3 (1.96-9.15); NEUTROPHILS PERCENT AUTO 83 % (41-73); Platelet Count 454 K/mm3 (150-400); RDW Coefficient Variation 17.3 % (11.7-14.2); RDW Standard Deviation 59.2 fL (35.1-46.3); Red Blood Cell Count 2.38 M/mm3 (3.80-5.20); White Blood Cell Count 8.11 K/mm3 (4.00-11.30)
== END 2022-10-27 12:20 | disposition home or self-care (01) ==
LOC: ATC 00:14
PROVIDERS: Dermatology
DX: L73.2 Hidradenitis suppurativa (principal); D63.1 Anemia in chronic kidney disease; Z79.899 Other long term (current) drug therapy; Z79.82 Long term (current) use of aspirin; I13.0 Hypertensive heart and chronic kidney disease with heart failure and stage 1 through stage 4 chronic kidney disease, or unspecified chronic kidney disease; N18.9 Chronic kidney disease, unspecified; I50.30 Unspecified diastolic (congestive) heart failure
CPT/HCPCS: 80053; 85025; 96413; 96415; J7050; Q5103

== ENCOUNTER 2022-11-02 00:32 | Day surgery (SDC) | payer OTHER | END 2022-11-02 12:08 | disposition home or self-care (01) | LOC: ATC 00:32 | DX: I13.0 Hypertensive heart and chronic kidney disease with heart failure and stage 1 through stage 4 chronic kidney disease, or unspecified chronic kidney disease (principal); D64.9 Anemia, unspecified; L73.2 Hidradenitis suppurativa; D69.6 Thrombocytopenia, unspecified; D72.829 Elevated white blood cell count, unspecified; I50.32 Chronic diastolic (congestive) heart failure; E78.5 Hyperlipidemia, unspecified; K21.9 Gastro-esophageal reflux disease without esophagitis; I48.91 Unspecified atrial fibrillation; Z88.8 Allergy status to other drugs, medicaments and biological substances; N18.9 Chronic kidney disease, unspecified | CPT/HCPCS: 36415; 36430; 86850; 86900; 86901; 86923; J7050; P9016 ==

== ENCOUNTER → 2022-11-03 | Outpatient (CLI) | payer OTHER | LOC: LAB SHORT 12:35 → LAB 12:35 | DX: R30.0 Dysuria (principal) | CPT/HCPCS: 87086 ==

== ENCOUNTER 2022-11-27 00:27 | Day surgery (SDC) | payer OTHER | END 2022-11-27 22:41 | disposition home or self-care (01) | LOC: WOUND 00:27 | DX: L73.2 Hidradenitis suppurativa (principal); L98.412 Non-pressure chronic ulcer of buttock with fat layer exposed | CPT/HCPCS: A9270; G0463 ==

== ENCOUNTER 2022-12-27 03:14 | Day surgery (SDC) | payer OTHER | END 2022-12-27 22:37 | disposition home or self-care (01) | LOC: WOUND 03:14 | DX: L73.2 Hidradenitis suppurativa (principal); L98.412 Non-pressure chronic ulcer of buttock with fat layer exposed | CPT/HCPCS: G0463 ==

== ENCOUNTER 2023-01-02 01:41 | Day surgery (SDC) | payer OTHER ==
[~2023-01-02] VITALS: Wt 53.6 kg
[2023-01-02 10:09] VITALS: BP 113/62
[2023-01-02 10:37] LABS: BASOPHILS ABSOLUTE AUTO 0.06 K/mm3 (0.00-0.23); BASOPHILS PERCENT AUTO 1 % (0-2); EOSINOPHILS ABSOLUTE AUTO 0.08 K/mm3 (0.00-0.68); EOSINOPHILS PERCENT AUTO 1 % (0-6); Hemoglobin 8.1 g/dL (11.5-16.0); IMMATURE GRAN ABSOLUTE AUTO 0.13 K/mm3 (0.00-0.10); IMMATURE GRAN PERCENT AUTO 1 % (0-1); LYMPHOCYTES ABSOLUTE AUTO 0.72 K/mm3 (0.84-5.20); LYMPHOCYTES PERCENT AUTO 7 % (21-46); MONOCYTES ABSOLUTE AUTO 0.91 K/mm3 (0.16-1.47); MONOCYTES PERCENT AUTO 8 % (4-13); Mean Corpuscular HGB 28.8 pg (26.0-34.0); Mean Corpuscular HGB Conc 33.8 g/dL (31.5-36.5); Mean Corpuscular Volume 85 fL (80-100); Mean Platelet Volume 8.3 fL (9.1-12.4); NEUTROPHILS ABSOLUTE AUTO 8.98 K/mm3 (1.96-9.15); NEUTROPHILS PERCENT AUTO 83 % (41-73); Platelet Count 406 K/mm3 (150-400); RDW Coefficient Variation 19.8 % (11.7-14.2); RDW Standard Deviation 56.5 fL (35.1-46.3); Red Blood Cell Count 2.81 M/mm3 (3.80-5.20); White Blood Cell Count 10.88 K/mm3 (4.00-11.30)
[2023-01-02 10:57] LABS: Albumin, Blood 1.8 g/dL (3.4-5.0); Albumin/Globulin Ratio 0.3 (0.8-1.8); Bilirubin, Total 0.4 mg/dL (0.1-1.0); Calcium, Blood 7.9 mg/dL (8.5-10.1); Creatinine, Blood 0.93 mg/dL (0.40-1.00); Globulin, Blood 5.9 g/dL (2.2-4.0); Potassium, Blood 4.1 mmol/L (3.5-5.5); Total Protein, Blood 7.7 g/dL (6.4-8.2)
== END 2023-01-02 13:00 | disposition home or self-care (01) ==
LOC: ATC 01:41
PROVIDERS: Dermatology
DX: L73.2 Hidradenitis suppurativa (principal); E78.5 Hyperlipidemia, unspecified; I11.0 Hypertensive heart disease with heart failure; I50.30 Unspecified diastolic (congestive) heart failure; K21.9 Gastro-esophageal reflux disease without esophagitis; I48.91 Unspecified atrial fibrillation; Z79.82 Long term (current) use of aspirin; Z79.899 Other long term (current) drug therapy
CPT/HCPCS: 80053; 85025; 96413; 96415; J7050; Q5103

== ENCOUNTER 2023-01-24 03:42 | Day surgery (SDC) | payer OTHER | END 2023-01-24 22:50 | disposition home or self-care (01) | LOC: WOUND 03:42 | DX: L73.2 Hidradenitis suppurativa (principal); L98.412 Non-pressure chronic ulcer of buttock with fat layer exposed | CPT/HCPCS: A9270; G0463 ==

== ENCOUNTER 2023-02-20 09:14 | Observation (INO) | payer OTHER ==
[~2023-02-20] VITALS: Ht 149.9 cm; Wt 52.9 kg
[2023-02-20 11:52] LABS: BASOPHILS ABSOLUTE AUTO 0.09 K/mm3 (0.00-0.23); BASOPHILS PERCENT AUTO 1 % (0-2); EOSINOPHILS ABSOLUTE AUTO 0.05 K/mm3 (0.00-0.68); EOSINOPHILS PERCENT AUTO 0 % (0-6); Hematocrit 25.8 % (33.0-51.0); Hemoglobin 8.3 g/dL (11.5-16.0); IMMATURE GRAN ABSOLUTE AUTO 0.13 K/mm3 (0.00-0.10); IMMATURE GRAN PERCENT AUTO 1 % (0-1); LYMPHOCYTES ABSOLUTE AUTO 0.84 K/mm3 (0.84-5.20); LYMPHOCYTES PERCENT AUTO 6 % (21-46); MONOCYTES ABSOLUTE AUTO 0.88 K/mm3 (0.16-1.47); MONOCYTES PERCENT AUTO 6 % (4-13); Mean Corpuscular HGB 31.8 pg (26.0-34.0); Mean Corpuscular HGB Conc 32.2 g/dL (31.5-36.5); Mean Corpuscular Volume 99 fL (80-100); Mean Platelet Volume 8.1 fL (9.1-12.4); NEUTROPHILS ABSOLUTE AUTO 12.15 K/mm3 (1.96-9.15); NEUTROPHILS PERCENT AUTO 86 % (41-73); Platelet Count 450 K/mm3 (150-400); RDW Coefficient Variation 20.1 % (11.7-14.2); RDW Standard Deviation 72.1 fL (35.1-46.3); Red Blood Cell Count 2.61 M/mm3 (3.80-5.20); White Blood Cell Count 14.14 K/mm3 (4.00-11.30)
[2023-02-20 12:07] LABS: Albumin, Blood 2.2 g/dL (3.4-5.0); Albumin/Globulin Ratio 0.4 (0.8-1.8); Bilirubin, Total 0.3 mg/dL (0.1-1.0); Bun/Creatinine Ratio 63.8 (12.0-20.0); Calcium, Blood 9.1 mg/dL (8.5-10.1); Creatinine, Blood 1.05 mg/dL (0.40-1.00); Globulin, Blood 5.9 g/dL (2.2-4.0); Potassium, Blood 4.4 mmol/L (3.5-5.5); Total Protein, Blood 8.1 g/dL (6.4-8.2)
[2023-02-20] MEDS ORDERED: ASCO500 PO (15:35)
[2023-02-20] MEDS ORDERED: Alphagan P5 ML BOTHEYES (15:36)
[2023-02-20] MEDS ORDERED: TIMDOROPSO BOTHEYES (15:37)
[2023-02-20] MEDS ORDERED: DOXYCYCLINE HYC50 M1 PO (15:38)
[2023-02-20] MEDS ORDERED: ESOMEPRAZOLE 20 MG PO (15:39)
[2023-02-20] MEDS ORDERED: Norco 5-325 MG PO (15:41)
[2023-02-20] MEDS ORDERED: Latanoprost BOTHEYES (15:42)
[2023-02-20] MEDS ORDERED: LISI5 PO (15:43)
[2023-02-20] MEDS ORDERED: METROCREAM TOP (15:44)
[2023-02-20] MEDS ORDERED: ALDACTONE25 MG PO (15:45)
[2023-02-20] MEDS ORDERED: TORS10 PO (15:46)
[2023-02-20] MEDS ORDERED: ESOM20 PO (16:42)
[2023-02-20 17:14] VITALS: BP 113/49
--- NOTE | 2023-02-20 18:26 | NUR ---
ARRIVAL NOTE/SHIFT SUMMARY PT ARRIVED FROM THE ER VIA GURNEY, TRANSFERRED OVER TO HER BED VIA SLIDER, ADMIT COMPLETED, PHOTOS TAKEN OF HER BUTTOCKS TO TRACK CHANGES ON HER HYDRADENITIS, 2 ABD PADS PLACED ON HER BUTTOCKS TO CONTROL ANY DRAINAGE. REPEAT CT SCAN COMPLETED AT 1800 ORDERED AND AWAITING RESULTS. NO ACUTE EVENTS. CALL LIGHT IN REACH.
[2023-02-20 19:58] VITALS: BP 88/49
[2023-02-20 20:01] VITALS: BP 110/50
[2023-02-21 04:51] VITALS: BP 114/49
[2023-02-21 05:11] LABS: BASOPHILS ABSOLUTE AUTO 0.08 K/mm3 (0.00-0.23); BASOPHILS PERCENT AUTO 1 % (0-2); EOSINOPHILS ABSOLUTE AUTO 0.01 K/mm3 (0.00-0.68); EOSINOPHILS PERCENT AUTO 0 % (0-6); Hemoglobin 7.1 g/dL (11.5-16.0); IMMATURE GRAN ABSOLUTE AUTO 0.09 K/mm3 (0.00-0.10); IMMATURE GRAN PERCENT AUTO 1 % (0-1); LYMPHOCYTES ABSOLUTE AUTO 0.62 K/mm3 (0.84-5.20); LYMPHOCYTES PERCENT AUTO 5 % (21-46); MONOCYTES ABSOLUTE AUTO 0.66 K/mm3 (0.16-1.47); MONOCYTES PERCENT AUTO 6 % (4-13); Mean Corpuscular HGB 31.7 pg (26.0-34.0); Mean Corpuscular HGB Conc 32.3 g/dL (31.5-36.5); Mean Corpuscular Volume 98 fL (80-100); NEUTROPHILS ABSOLUTE AUTO 9.93 K/mm3 (1.96-9.15); NEUTROPHILS PERCENT AUTO 87 % (41-73); Platelet Count 344 K/mm3 (150-400); RDW Standard Deviation 70.6 fL (35.1-46.3); Red Blood Cell Count 2.24 M/mm3 (3.80-5.20); White Blood Cell Count 11.39 K/mm3 (4.00-11.30)
--- NOTE | 2023-02-21 05:17 | NUR ---
SHIFT SUMMARY A/0 X4- SBA W/ FWW TO BSC. NEURO CHECKS Q4H, NO ACUTE CHANGES. PAIN MANAGED W/ PO PAIN MEDICATIONS. VOIDING AND PASSED BM THIS SHIFT. PLEASANT AND COOPERATIVE W/ CARE. REPOSITIONED Q2H WHEN PT ALLOWED AND CHANGED ABD PADS ON PATIENTS BUTTOCKS W/ REPOSITIONING. PURWICK IN PLACE FOR URINE TO KEEP DRY.
[2023-02-21 05:54] LABS: Anion Gap 9 mmol/L (6-16); Blood Urea Nitrogen 50 mg/dL (8-24); Bun/Creatinine Ratio 58.5 (12.0-20.0); CO2, Blood 18 mmol/L (21-32); Calcium, Blood 8.8 mg/dL (8.5-10.1); Chloride, Blood 112 mmol/L (98-108); Creatinine, Blood 0.85 mg/dL (0.40-1.00); Glomerular Filtration Rate 68 (60-); Glucose, Blood 104 mg/dL (70-99); Magnesium, Blood 1.4 mg/dL (1.6-2.4); Phosphorus, Blood 2.5 mg/dL (2.5-4.9); Potassium, Blood 4.1 mmol/L (3.5-5.5); Sodium, Blood 139 mmol/L (136-145)
[2023-02-21 07:36] VITALS: BP 105/54
[2023-02-21] MEDS ORDERED: APAP500 MG PO (13:56)
--- NOTE | 2023-02-21 15:45 | NUR ---
PATIENT D/C'D HOME WITH SON. DC INSTRUCTIONS AND EDUCATION DISCUSSED WITH PATIENT AND COPY PROVIDED. NO NEW RX MEDICATIONS. PATIENT TO FOLLOW UP WITH PCP IN 1 WEEK. PATIENT AND SON DENY ANY FURTHER QUESTIONS OR CONCERNS.
== END 2023-02-21 15:10 | disposition home or self-care (01) ==
LOC: ER 09:14 → MEDS 09:15
PROVIDERS: Physician Assistant; ADMIT Family Medicine
DX: S06.6X0A Traumatic subarachnoid hemorrhage without loss of consciousness, initial encounter (principal); S01.81XA Laceration without foreign body of other part of head, initial encounter; H35.30 Unspecified macular degeneration; I11.0 Hypertensive heart disease with heart failure; I50.30 Unspecified diastolic (congestive) heart failure; W18.30XA Fall on same level, unspecified, initial encounter; Y93.G3 Activity, cooking and baking; Y92.000 Kitchen of unspecified non-institutional (private) residence as the place of occurrence of the external cause
CPT/HCPCS: 12001; 36415; 70450; 80053; 80069; 83735; 85025; 97116; 97162; 99285-25; A9270; C9113; G0378

== ENCOUNTER 2023-03-01 01:37 | Day surgery (SDC) | payer OTHER ==
[~2023-03-01 01:37] MED LIST changes: +ALDACTONE25 MG PO; +APAP500 MG PO; +DOXYCYCLINE HYC50 M1 PO; +ESOM20 PO; +ESOMEPRAZOLE 20 MG PO; +Latanoprost BOTHEYES; +METROCREAM TOP; +Norco 5-325 MG PO; +TORS10 PO
== END 2023-03-01 12:07 | disposition home or self-care (01) ==
LOC: WOUND 01:37
DX: L73.2 Hidradenitis suppurativa (principal); L98.412 Non-pressure chronic ulcer of buttock with fat layer exposed; D63.1 Anemia in chronic kidney disease; B35.8 Other dermatophytoses; Z88.1 Allergy status to other antibiotic agents; Z88.8 Allergy status to other drugs, medicaments and biological substances
CPT/HCPCS: 36415; 80053; 85025; 96413; 96415; G0463; J7050; Q5103

== ENCOUNTER 2023-04-11 05:28 | Day surgery (SDC) | payer OTHER | END 2023-04-11 22:42 | disposition home or self-care (01) | LOC: WOUND 05:28 | DX: L98.412 Non-pressure chronic ulcer of buttock with fat layer exposed (principal); L73.2 Hidradenitis suppurativa | CPT/HCPCS: G0463 ==

== ENCOUNTER 2023-05-04 01:45 | Day surgery (SDC) | payer OTHER ==
[2023-05-04] VITALS (7 sets, daily range): BP systolic 126–138; BP diastolic 57–79
== END 2023-05-04 18:22 | disposition home or self-care (01) ==
LOC: ATC 01:45 → EDSTATUS 14:15 → ATC 18:22
DX: D64.9 Anemia, unspecified (principal)
CPT/HCPCS: 36415; 36430; 86850; 86900; 86901; 86923; J7050; P9016

== ENCOUNTER 2023-05-08 02:06 | Day surgery (SDC) | payer OTHER ==
[2023-05-08 09:00] VITALS: BP 129/68
[2023-05-08 09:46] LABS: BASOPHILS PERCENT AUTO 1 % (0-2); EOSINOPHILS ABSOLUTE AUTO 0.19 K/mm3 (0.00-0.68); EOSINOPHILS PERCENT AUTO 2 % (0-6); Hematocrit 29.1 % (33.0-51.0); Hemoglobin 9.5 g/dL (11.5-16.0); IMMATURE GRAN ABSOLUTE AUTO 0.06 K/mm3 (0.00-0.10); IMMATURE GRAN PERCENT AUTO 1 % (0-1); LYMPHOCYTES ABSOLUTE AUTO 0.63 K/mm3 (0.84-5.20); LYMPHOCYTES PERCENT AUTO 6 % (21-46); MONOCYTES PERCENT AUTO 7 % (4-13); Mean Corpuscular HGB 32.3 pg (26.0-34.0); Mean Corpuscular HGB Conc 32.6 g/dL (31.5-36.5); Mean Corpuscular Volume 99 fL (80-100); Mean Platelet Volume 8.3 fL (9.1-12.4); NEUTROPHILS ABSOLUTE AUTO 8.89 K/mm3 (1.96-9.15); NEUTROPHILS PERCENT AUTO 84 % (41-73); Platelet Count 436 K/mm3 (150-400); RDW Coefficient Variation 17.2 % (11.7-14.2); RDW Standard Deviation 61.3 fL (35.1-46.3); Red Blood Cell Count 2.94 M/mm3 (3.80-5.20); White Blood Cell Count 10.57 K/mm3 (4.00-11.30)
[2023-05-08 10:27] LABS: Albumin, Blood 1.7 g/dL (3.4-5.0); Albumin/Globulin Ratio 0.3 (0.8-1.8); Bilirubin, Total 0.3 mg/dL (0.1-1.0); Bun/Creatinine Ratio 26.9 (12.0-20.0); Calcium, Blood 8.5 mg/dL (8.5-10.1); Creatinine, Blood 0.67 mg/dL (0.40-1.00); Globulin, Blood 5.5 g/dL (2.2-4.0); Potassium, Blood 5.3 mmol/L (3.5-5.5); Total Protein, Blood 7.2 g/dL (6.4-8.2)
--- NOTE | 2023-05-08 10:52 | NUR ---
CBC RESULTS FAXED TO DR Shashi NICHOLAS. CBC AND CMP RESULTS FAXED TO DR Tato NICHOLAS.
== END 2023-05-08 11:57 | disposition home or self-care (01) ==
LOC: ATC 02:06
PROVIDERS: Dermatology
DX: L73.2 Hidradenitis suppurativa (principal)
CPT/HCPCS: 80053; 85025; 96413; 96415; J7050; Q5103

== ENCOUNTER 2023-07-09 00:47 | Day surgery (SDC) | payer OTHER | END 2023-07-09 22:45 | disposition home or self-care (01) | LOC: WOUND 00:47 | DX: L73.2 Hidradenitis suppurativa (principal); L98.412 Non-pressure chronic ulcer of buttock with fat layer exposed | CPT/HCPCS: 80053; 85025; 96413; 96415; G0463; J7050; Q5103 ==

== ENCOUNTER 2023-09-03 04:27 | Day surgery (SDC) | payer OTHER ==
[2023-09-03 09:10] VITALS: BP 141/70
--- NOTE | 2023-09-03 11:57 | NUR ---
UNABLE TO DRAW LABS WITH IV START AND UNABLE TO DRAW LABS FROM PERIPHERAL IV AFTER INFUSION COMPLETE. PT'S SON STATES PT GETS WEEKLY LABS DONE AT OUTPATIENT LAB. PT AND SON DECLINED AN ADDITIONAL NEEDLE STICK FOR LABS TODAY. COPY OF LAB ORDER SENT WITH PT'S SON. PT'S SON WILL HAVE OUTPATIENT LAB DRAW CBC AND CMP ON Sun09/05/23 AND HAVE THEM SENT TO DR. NICHOLAS'S OFFICE.
== END 2023-09-03 11:45 | disposition home or self-care (01) ==
LOC: ATC 04:27
DX: L73.2 Hidradenitis suppurativa (principal); Z79.899 Other long term (current) drug therapy; Z88.8 Allergy status to other drugs, medicaments and biological substances
CPT/HCPCS: 96413; 96415; J7050; Q5103

== ENCOUNTER 2023-09-03 04:36 | Day surgery (SDC) | payer OTHER | END 2023-09-03 22:39 | disposition home or self-care (01) | LOC: WOUND 04:36 | DX: L98.412 Non-pressure chronic ulcer of buttock with fat layer exposed (principal); L73.2 Hidradenitis suppurativa | CPT/HCPCS: G0463 ==

== ENCOUNTER 2023-12-31 00:23 | Day surgery (SDC) | payer OTHER ==
[~2023-12-31 00:23] MED LIST changes: +Amoxicillin500 MG PO
== END 2023-12-31 22:40 | disposition home or self-care (01) ==
LOC: WOUND 00:23
DX: L98.412 Non-pressure chronic ulcer of buttock with fat layer exposed (principal); L73.2 Hidradenitis suppurativa; Z79.82 Long term (current) use of aspirin; Z79.899 Other long term (current) drug therapy; Z88.1 Allergy status to other antibiotic agents; Z88.8 Allergy status to other drugs, medicaments and biological substances
CPT/HCPCS: 96413; 96415; G0463; J7050; Q5103

== ENCOUNTER → 2024-02-07 | Outpatient (CLI) | payer OTHER ==
[2024-02-07 17:34] LABS: U Amphetamine Screen Not Detected; U Barbituate Screen Not Detected; U Benzodiazapine Screen Not Detected; U Buprenorphine Screen Not Detected; U Cannabinoids Screen Not Detected; U Cocaine Screen Not Detected; U Methadone Screen Not Detected; U Methamphetamine Screen Not Detected; U Opiates Screen DETECTED; U Oxycodone Screen Not Detected; U Phencyclidine Screen Not Detected
== END | disposition home or self-care (01) ==
LOC: LAB 14:34 → LAB SHORT 14:34
PROVIDERS: Physician Assistant
DX: G89.4 Chronic pain syndrome (principal); Z79.899 Other long term (current) drug therapy

== ENCOUNTER 2024-02-25 02:21 | Day surgery (SDC) | payer OTHER | END 2024-02-25 23:21 | disposition home or self-care (01) | LOC: WOUND 02:21 | DX: L98.412 Non-pressure chronic ulcer of buttock with fat layer exposed (principal); L73.2 Hidradenitis suppurativa | CPT/HCPCS: G0463 ==

== ENCOUNTER 2024-02-25 02:37 | Day surgery (SDC) | payer OTHER ==
[2024-02-25] MEDS ORDERED: Infliximab-DYYB 400 MG in NS 250 ML IV SCH (06:00)
[2024-02-25] MEDS ORDERED: DiphenhydrAMINE HCl 50 MG/ML 1ML Vial IV SCH (06:55)
[2024-02-25 09:32] VITALS: BP 131/52
[2024-02-25 10:11] LABS: BASOPHILS PERCENT AUTO 2 % (0-2); EOSINOPHILS ABSOLUTE AUTO 0.29 K/mm3 (0.00-0.68); EOSINOPHILS PERCENT AUTO 5 % (0-6); Hematocrit 31.1 % (33.0-51.0); Hemoglobin 9.5 g/dL (11.5-16.0); IMMATURE GRAN ABSOLUTE AUTO 0.01 K/mm3 (0.00-0.10); IMMATURE GRAN PERCENT AUTO 0 % (0-1); LYMPHOCYTES ABSOLUTE AUTO 1.24 K/mm3 (0.84-5.20); LYMPHOCYTES PERCENT AUTO 19 % (21-46); MONOCYTES ABSOLUTE AUTO 0.81 K/mm3 (0.16-1.47); MONOCYTES PERCENT AUTO 13 % (4-13); Mean Corpuscular HGB 27.5 pg (26.0-34.0); Mean Corpuscular HGB Conc 30.5 g/dL (31.5-36.5); Mean Corpuscular Volume 90 fL (80-100); Mean Platelet Volume 8.7 fL (9.1-12.4); NEUTROPHILS ABSOLUTE AUTO 3.95 K/mm3 (1.96-9.15); NEUTROPHILS PERCENT AUTO 62 % (41-73); Platelet Count 336 K/mm3 (150-400); RDW Coefficient Variation 17.7 % (11.7-14.2); RDW Standard Deviation 58.8 fL (35.1-46.3); Red Blood Cell Count 3.45 M/mm3 (3.80-5.20)
[2024-02-25 10:36] LABS: Albumin, Blood 2.4 g/dL (3.4-5.0); Albumin/Globulin Ratio 0.4 (0.8-1.8); Bilirubin, Total 0.3 mg/dL (0.1-1.0); Bun/Creatinine Ratio 35.9 (12.0-20.0); Calcium, Blood 8.5 mg/dL (8.5-10.1); Creatinine, Blood 0.92 mg/dL (0.40-1.00); Globulin, Blood 5.4 g/dL (2.2-4.0); Potassium, Blood 4.9 mmol/L (3.5-5.5); Total Protein, Blood 7.8 g/dL (6.4-8.2)
--- NOTE | 2024-02-25 13:23 | NUR ---
Lab results from today faxed to Dr. Akers's office.
== END 2024-02-25 12:18 | disposition home or self-care (01) ==
LOC: ATC 02:37
PROVIDERS: Dermatology
DX: L73.2 Hidradenitis suppurativa (principal)
CPT/HCPCS: 80053; 85025; 96413; 96415; J7050; Q5103

== ENCOUNTER 2024-04-21 00:37 | Day surgery (SDC) | payer OTHER ==
[2024-04-21] MEDS ORDERED: Infliximab-DYYB 400 MG in NS 250 ML IV SCH (06:00)
[2024-04-21] MEDS ORDERED: DiphenhydrAMINE HCl 50 MG/ML 1ML Vial IV ONE (07:25)
[2024-04-21 08:47] VITALS: BP 171/59
--- NOTE | 2024-04-21 08:56 | NUR ---
Unable to draw labs from IV start site. Pt's son reports pt just had labs done 2 weeks ago, declines a second stick for labs at this time.
== END 2024-04-21 11:55 | disposition home or self-care (01) ==
LOC: ATC 00:37
DX: L73.2 Hidradenitis suppurativa (principal)
CPT/HCPCS: 96375; 96413; 96415; J1200; J7050; Q5103

== ENCOUNTER 2024-04-30 04:05 | Day surgery (SDC) | payer OTHER | END 2024-04-30 22:43 | disposition home or self-care (01) | LOC: WOUND 04:05 | DX: L73.2 Hidradenitis suppurativa (principal); L98.412 Non-pressure chronic ulcer of buttock with fat layer exposed | CPT/HCPCS: G0463 ==

== ENCOUNTER 2024-06-16 02:20 | Day surgery (SDC) | payer OTHER ==
[2024-06-16] MEDS ORDERED: Infliximab-DYYB 400 MG in NS 250 ML IV SCH (06:00)
[2024-06-16 08:19] VITALS: BP 183/69
[2024-06-16 09:17] LABS: BASOPHILS ABSOLUTE AUTO 0.08 K/mm3 (0.00-0.23); BASOPHILS PERCENT AUTO 1 % (0-2); EOSINOPHILS ABSOLUTE AUTO 0.24 K/mm3 (0.00-0.68); EOSINOPHILS PERCENT AUTO 4 % (0-6); Hemoglobin 11.7 g/dL (11.5-16.0); IMMATURE GRAN ABSOLUTE AUTO 0.03 K/mm3 (0.00-0.10); IMMATURE GRAN PERCENT AUTO 1 % (0-1); LYMPHOCYTES ABSOLUTE AUTO 1.11 K/mm3 (0.84-5.20); LYMPHOCYTES PERCENT AUTO 18 % (21-46); MONOCYTES ABSOLUTE AUTO 0.78 K/mm3 (0.16-1.47); MONOCYTES PERCENT AUTO 13 % (4-13); Mean Corpuscular HGB 29.5 pg (26.0-34.0); Mean Corpuscular HGB Conc 31.6 g/dL (31.5-36.5); Mean Corpuscular Volume 93 fL (80-100); Mean Platelet Volume 8.4 fL (9.1-12.4); NEUTROPHILS ABSOLUTE AUTO 3.89 K/mm3 (1.96-9.15); NEUTROPHILS PERCENT AUTO 64 % (41-73); Platelet Count 310 K/mm3 (150-400); RDW Coefficient Variation 15.2 % (11.7-14.2); RDW Standard Deviation 52.3 fL (35.1-46.3); Red Blood Cell Count 3.97 M/mm3 (3.80-5.20); White Blood Cell Count 6.13 K/mm3 (4.00-11.30)
[2024-06-16 09:37] LABS: Albumin, Blood 2.2 g/dL (3.4-5.0); Albumin/Globulin Ratio 0.4 (0.8-1.8); Bilirubin, Total 0.2 mg/dL (0.1-1.0); Bun/Creatinine Ratio 43.2 (12.0-20.0); Calcium, Blood 8.8 mg/dL (8.5-10.1); Creatinine, Blood 0.69 mg/dL (0.40-1.00); Globulin, Blood 5.1 g/dL (2.2-4.0); Potassium, Blood 4.5 mmol/L (3.5-5.5); Total Protein, Blood 7.3 g/dL (6.4-8.2)
[2024-06-16] MEDS ORDERED: [UNRECOGNIZED DRUG - CODE] IJ (11:40)
--- NOTE | 2024-06-16 11:49 | NUR ---
Lab results from today faxed to Dr. Tato Akers and Dr. Leyla Akers per pt and pt's son's request.
== END 2024-06-16 11:30 | disposition home or self-care (01) ==
LOC: ATC 02:20
PROVIDERS: Dermatology
DX: L73.2 Hidradenitis suppurativa (principal); L98.412 Non-pressure chronic ulcer of buttock with fat layer exposed; Z85.3 Personal history of malignant neoplasm of breast; Z79.82 Long term (current) use of aspirin; Z79.899 Other long term (current) drug therapy; Z88.1 Allergy status to other antibiotic agents; Z88.8 Allergy status to other drugs, medicaments and biological substances
CPT/HCPCS: 80053; 85025; 96413; 96415; G0463; J7050; Q5103

== ENCOUNTER 2024-06-16 02:48 | Day surgery (SDC) | payer OTHER ==
[2024-06-16] MEDS ORDERED: [UNRECOGNIZED DRUG - CODE] IJ (11:40)
== END 2024-06-16 23:00 | disposition home or self-care (01) ==
LOC: WOUND 02:48
DX: L73.2 Hidradenitis suppurativa (principal); L98.412 Non-pressure chronic ulcer of buttock with fat layer exposed
CPT/HCPCS: G0463

== ENCOUNTER 2024-08-11 03:06 | Day surgery (SDC) | payer OTHER ==
[~2024-08-11 03:06] MED LIST changes: +[UNRECOGNIZED DRUG - CODE] IJ
== END 2024-08-11 23:00 | disposition home or self-care (01) ==
LOC: WOUND 03:06
DX: L73.2 Hidradenitis suppurativa (principal)
CPT/HCPCS: G0463

== ENCOUNTER 2024-08-11 04:00 | Day surgery (SDC) | payer OTHER ==
[2024-08-11] MEDS ORDERED: Infliximab-DYYB 400 MG in NS 250 ML IV SCH (06:00)
[2024-08-11] MEDS ORDERED: DiphenhydrAMINE HCl 50 MG/ML 1ML Vial IV SCH (07:15)
[2024-08-11 08:50] VITALS: BP 158/66
[2024-08-11 09:52] LABS: BASOPHILS PERCENT AUTO 1 % (0-2); EOSINOPHILS ABSOLUTE AUTO 0.27 K/mm3 (0.00-0.68); EOSINOPHILS PERCENT AUTO 3 % (0-6); Hematocrit 33.2 % (33.0-51.0); Hemoglobin 10.7 g/dL (11.5-16.0); IMMATURE GRAN ABSOLUTE AUTO 0.04 K/mm3 (0.00-0.10); IMMATURE GRAN PERCENT AUTO 1 % (0-1); LYMPHOCYTES ABSOLUTE AUTO 1.08 K/mm3 (0.84-5.20); LYMPHOCYTES PERCENT AUTO 12 % (21-46); MONOCYTES ABSOLUTE AUTO 0.96 K/mm3 (0.16-1.47); MONOCYTES PERCENT AUTO 11 % (4-13); Mean Corpuscular HGB 29.6 pg (26.0-34.0); Mean Corpuscular HGB Conc 32.2 g/dL (31.5-36.5); Mean Corpuscular Volume 92 fL (80-100); Mean Platelet Volume 8.3 fL (9.1-12.4); NEUTROPHILS ABSOLUTE AUTO 6.28 K/mm3 (1.96-9.15); NEUTROPHILS PERCENT AUTO 72 % (41-73); Platelet Count 389 K/mm3 (150-400); RDW Coefficient Variation 16.3 % (11.7-14.2); RDW Standard Deviation 55.7 fL (35.1-46.3); Red Blood Cell Count 3.61 M/mm3 (3.80-5.20); White Blood Cell Count 8.73 K/mm3 (4.00-11.30)
[2024-08-11 10:15] LABS: Albumin, Blood 2.4 g/dL (3.4-5.0); Albumin/Globulin Ratio 0.4 (0.8-1.8); Bilirubin, Total 0.3 mg/dL (0.1-1.0); Bun/Creatinine Ratio 33.6 (12.0-20.0); Calcium, Blood 9.1 mg/dL (8.5-10.1); Creatinine, Blood 0.74 mg/dL (0.40-1.00); Globulin, Blood 5.6 g/dL (2.2-4.0); Potassium, Blood 4.5 mmol/L (3.5-5.5)
== END 2024-08-11 11:55 | disposition home or self-care (01) ==
LOC: ATC 04:00
PROVIDERS: Internal Medicine Hematology & Oncology
DX: L73.2 Hidradenitis suppurativa (principal); Z79.899 Other long term (current) drug therapy; Z88.1 Allergy status to other antibiotic agents; Z88.8 Allergy status to other drugs, medicaments and biological substances
CPT/HCPCS: 80053; 85025; 96413; 96415; G0463; J7050; Q5103

== ENCOUNTER 2024-10-06 01:09 | Day surgery (SDC) | payer OTHER ==
[2024-10-06] MEDS ORDERED: Infliximab-DYYB 400 MG in NS 250 ML IV SCH (06:00)
[2024-10-06] MEDS ORDERED: DiphenhydrAMINE HCl 50 MG/ML 1ML Vial IV SCH (06:50)
[2024-10-06 09:05] VITALS: BP 158/77
[2024-10-06 09:58] LABS: BASOPHILS ABSOLUTE AUTO 0.09 K/mm3 (0.00-0.23); BASOPHILS PERCENT AUTO 1 % (0-2); EOSINOPHILS ABSOLUTE AUTO 0.41 K/mm3 (0.00-0.68); EOSINOPHILS PERCENT AUTO 6 % (0-6); Hematocrit 33.6 % (33.0-51.0); Hemoglobin 10.6 g/dL (11.5-16.0); IMMATURE GRAN ABSOLUTE AUTO 0.03 K/mm3 (0.00-0.10); IMMATURE GRAN PERCENT AUTO 0 % (0-1); LYMPHOCYTES ABSOLUTE AUTO 1.22 K/mm3 (0.84-5.20); LYMPHOCYTES PERCENT AUTO 18 % (21-46); MONOCYTES ABSOLUTE AUTO 0.69 K/mm3 (0.16-1.47); MONOCYTES PERCENT AUTO 10 % (4-13); Mean Corpuscular HGB Conc 31.5 g/dL (31.5-36.5); Mean Corpuscular Volume 98 fL (80-100); Mean Platelet Volume 8.5 fL (9.1-12.4); NEUTROPHILS ABSOLUTE AUTO 4.35 K/mm3 (1.96-9.15); NEUTROPHILS PERCENT AUTO 64 % (41-73); Platelet Count 349 K/mm3 (150-400); RDW Coefficient Variation 15.5 % (11.7-14.2); RDW Standard Deviation 55.6 fL (35.1-46.3); Red Blood Cell Count 3.42 M/mm3 (3.80-5.20); White Blood Cell Count 6.79 K/mm3 (4.00-11.30)
[2024-10-06 10:24] LABS: Albumin, Blood 2.7 g/dL (3.4-5.0); Albumin/Globulin Ratio 0.5 (0.8-1.8); Bilirubin, Total 0.3 mg/dL (0.1-1.0); Bun/Creatinine Ratio 28.7 (12.0-20.0); Creatinine, Blood 0.63 mg/dL (0.40-1.00); Globulin, Blood 5.4 g/dL (2.2-4.0); Potassium, Blood 4.2 mmol/L (3.5-5.5); Total Protein, Blood 8.1 g/dL (6.4-8.2)
== END 2024-10-06 11:39 | disposition home or self-care (01) ==
LOC: ATC 01:09
PROVIDERS: Dermatology
DX: L73.2 Hidradenitis suppurativa (principal); Z88.1 Allergy status to other antibiotic agents; Z88.8 Allergy status to other drugs, medicaments and biological substances; Z85.3 Personal history of malignant neoplasm of breast
CPT/HCPCS: 80053; 85025; 96413; 96415; J7050; Q5103

== ENCOUNTER 2024-10-06 01:17 | Day surgery (SDC) | payer OTHER | END 2024-10-06 23:00 | disposition home or self-care (01) | LOC: WOUND 01:17 | DX: L73.2 Hidradenitis suppurativa (principal); L98.412 Non-pressure chronic ulcer of buttock with fat layer exposed | CPT/HCPCS: G0463 ==

== ENCOUNTER 2024-12-02 02:36 | Day surgery (SDC) | payer OTHER ==
[2024-12-02] MEDS ORDERED: Infliximab-DYYB 400 MG in NS 250 ML IV SCH (06:00)
[2024-12-02 08:52] VITALS: BP 190/67
[2024-12-02 09:53] LABS: BASOPHILS ABSOLUTE AUTO 0.09 K/mm3 (0.00-0.23); BASOPHILS PERCENT AUTO 1 % (0-2); EOSINOPHILS PERCENT AUTO 5 % (0-6); Hematocrit 37.1 % (33.0-51.0); Hemoglobin 11.9 g/dL (11.5-16.0); IMMATURE GRAN ABSOLUTE AUTO 0.02 K/mm3 (0.00-0.10); IMMATURE GRAN PERCENT AUTO 0 % (0-1); LYMPHOCYTES ABSOLUTE AUTO 1.21 K/mm3 (0.84-5.20); LYMPHOCYTES PERCENT AUTO 15 % (21-46); MONOCYTES PERCENT AUTO 11 % (4-13); Mean Corpuscular HGB 31.2 pg (26.0-34.0); Mean Corpuscular HGB Conc 32.1 g/dL (31.5-36.5); Mean Corpuscular Volume 97 fL (80-100); Mean Platelet Volume 8.7 fL (9.1-12.4); NEUTROPHILS ABSOLUTE AUTO 5.29 K/mm3 (1.96-9.15); NEUTROPHILS PERCENT AUTO 67 % (41-73); Platelet Count 317 K/mm3 (150-400); RDW Coefficient Variation 14.6 % (11.7-14.2); Red Blood Cell Count 3.81 M/mm3 (3.80-5.20); White Blood Cell Count 7.91 K/mm3 (4.00-11.30)
[2024-12-02 10:08] LABS: Albumin, Blood 2.9 g/dL (3.4-5.0); Albumin/Globulin Ratio 0.5 (0.8-1.8); Bilirubin, Total 0.2 mg/dL (0.1-1.0); Bun/Creatinine Ratio 48.7 (12.0-20.0); Calcium, Blood 8.8 mg/dL (8.5-10.1); Creatinine, Blood 0.72 mg/dL (0.40-1.00); Globulin, Blood 5.4 g/dL (2.2-4.0); Potassium, Blood 5.1 mmol/L (3.5-5.5); Total Protein, Blood 8.3 g/dL (6.4-8.2)
--- NOTE | 2024-12-02 10:38 | NUR ---
PT'S BP ELEVATED UPON ARRIVAL TODAY. PT GETS VERY ANXIOUS FOR IV START AND BP CHECKS THEY ARE UNCOMFORTABLE. SON STATES HER BP IS USUALLY IN NORMAL RANGE EVERYWHERE ELSE BUT HER VISITS HERE. PT IS ASYMPTOMATIC WITH ELEVATED BP. OFFERED TO CHECK A MANUAL BP BUT PT DECLINES BP CHECKS ARE UNCOMFORTABLE. SON NOT CONCERNED. WILL CONTINUE TO HAVE BP CHECKED WHEN SHE SEES HER OTHER MD'S.
--- NOTE | 2024-12-02 11:01 | NUR ---
LAB RESULTS FAXED TO PCP PER MD URIAS. LABS ALSO FAXED TO DR JON NICHOLAS PER PT'S REQUEST.
== END 2024-12-02 11:58 | disposition home or self-care (01) ==
LOC: ATC 02:36
PROVIDERS: Dermatology
DX: L73.2 Hidradenitis suppurativa (principal); Z88.1 Allergy status to other antibiotic agents; Z88.8 Allergy status to other drugs, medicaments and biological substances; Z79.899 Other long term (current) drug therapy
CPT/HCPCS: 80053; 85025; 96413; 96415; J7050; Q5103

== ENCOUNTER → 2024-12-02 | Day surgery (SDC) | payer OTHER | LOC: WOUND 02:29 | DX: L73.2 Hidradenitis suppurativa (principal) | CPT/HCPCS: G0463 ==

== ENCOUNTER 2025-01-27 04:31 | Day surgery (SDC) | payer OTHER ==
[~2025-01-27 04:31] MED LIST changes: +Infliximab-DYYB 400 MG in NS 250 ML IV SCH
[2025-01-27 08:54] VITALS: BP 119/55
[2025-01-27 09:20] LABS: BASOPHILS ABSOLUTE AUTO 0.08 K/mm3 (0.00-0.23); BASOPHILS PERCENT AUTO 1 % (0-2); EOSINOPHILS ABSOLUTE AUTO 0.35 K/mm3 (0.00-0.68); EOSINOPHILS PERCENT AUTO 4 % (0-6); Hematocrit 34.4 % (33.0-51.0); IMMATURE GRAN ABSOLUTE AUTO 0.03 K/mm3 (0.00-0.10); IMMATURE GRAN PERCENT AUTO 0 % (0-1); LYMPHOCYTES PERCENT AUTO 13 % (21-46); MONOCYTES ABSOLUTE AUTO 0.77 K/mm3 (0.16-1.47); MONOCYTES PERCENT AUTO 8 % (4-13); Mean Corpuscular HGB 30.6 pg (26.0-34.0); Mean Corpuscular Volume 96 fL (80-100); Mean Platelet Volume 8.7 fL (9.1-12.4); NEUTROPHILS ABSOLUTE AUTO 7.34 K/mm3 (1.96-9.15); NEUTROPHILS PERCENT AUTO 74 % (41-73); Platelet Count 321 K/mm3 (150-400); RDW Standard Deviation 49.6 fL (35.1-46.3); Red Blood Cell Count 3.59 M/mm3 (3.80-5.20); White Blood Cell Count 9.87 K/mm3 (4.00-11.30)
[2025-01-27 09:29] LABS: Albumin, Blood 2.9 g/dL (3.4-5.0); Albumin/Globulin Ratio 0.5 (0.8-1.8); Bilirubin, Total 0.2 mg/dL (0.1-1.0); Bun/Creatinine Ratio 31.7 (12.0-20.0); Calcium, Blood 8.7 mg/dL (8.5-10.1); Creatinine, Blood 1.01 mg/dL (0.40-1.00); Globulin, Blood 5.7 g/dL (2.2-4.0); Potassium, Blood 5.2 mmol/L (3.5-5.5); Total Protein, Blood 8.6 g/dL (6.4-8.2)
--- NOTE | 2025-01-27 10:44 | NUR ---
PT ASSISTED TO STAND NEXT TO CHAIR TO VOID WITH FEMALE URINAL. BACK TO CHAIR WITH WARM BLANKETS AND WATER. AFTER VOIDING, PT REPORTED IV LINE FELT "PINCHY". BLANKETS PULLED BACK AND DIME SIZED INFILTRATION NOTED TO RIGHT FOREARM. IV MED STOPPED. NEW LINE PLACED. IV MED RESTARTED. ORIGINAL IV LINE D/C'D WNL. WILL CONT TO MONITOR
== END 2025-01-27 11:26 | disposition home or self-care (01) ==
LOC: ATC 04:31
PROVIDERS: Dermatology
DX: L73.2 Hidradenitis suppurativa (principal); Z79.899 Other long term (current) drug therapy; Z88.8 Allergy status to other drugs, medicaments and biological substances
CPT/HCPCS: 80053; 85025; 96413; 96415; J7050; Q5103

== ENCOUNTER 2025-03-24 01:17 | Day surgery (SDC) | payer OTHER ==
[~2025-03-24 01:17] MED LIST changes: -Infliximab-DYYB 400 MG in NS 250 ML IV SCH
== END 2025-03-24 23:00 | disposition home or self-care (01) ==
LOC: WOUND 01:17
DX: L98.412 Non-pressure chronic ulcer of buttock with fat layer exposed (principal); L73.2 Hidradenitis suppurativa; J45.909 Unspecified asthma, uncomplicated; I48.91 Unspecified atrial fibrillation; I11.0 Hypertensive heart disease with heart failure; I50.9 Heart failure, unspecified; E78.2 Mixed hyperlipidemia; Z95.2 Presence of prosthetic heart valve; M10.9 Gout, unspecified; M19.90 Unspecified osteoarthritis, unspecified site
CPT/HCPCS: G0463

== ENCOUNTER 2025-03-24 01:39 | Day surgery (SDC) | payer OTHER ==
[2025-03-24 08:59] VITALS: BP 151/59
[2025-03-24 09:39] LABS: BASOPHILS ABSOLUTE AUTO 0.08 K/mm3 (0.00-0.23); BASOPHILS PERCENT AUTO 1 % (0-2); EOSINOPHILS ABSOLUTE AUTO 0.36 K/mm3 (0.00-0.68); EOSINOPHILS PERCENT AUTO 6 % (0-6); Hematocrit 33.3 % (33.0-51.0); Hemoglobin 10.6 g/dL (11.5-16.0); IMMATURE GRAN ABSOLUTE AUTO 0.02 K/mm3 (0.00-0.10); IMMATURE GRAN PERCENT AUTO 0 % (0-1); LYMPHOCYTES ABSOLUTE AUTO 1.19 K/mm3 (0.84-5.20); LYMPHOCYTES PERCENT AUTO 19 % (21-46); MONOCYTES ABSOLUTE AUTO 0.76 K/mm3 (0.16-1.47); MONOCYTES PERCENT AUTO 12 % (4-13); Mean Corpuscular HGB Conc 31.8 g/dL (31.5-36.5); Mean Corpuscular Volume 100 fL (80-100); NEUTROPHILS ABSOLUTE AUTO 3.91 K/mm3 (1.96-9.15); NEUTROPHILS PERCENT AUTO 62 % (41-73); NRBC ABSOLUTE 0.00 K/mm3 (0.00-0.02); NRBC Auto 0.0 /100 WBC (0.0-0.2); Platelet Count 195 K/mm3 (150-400); RDW Coefficient Variation 14.5 % (11.7-14.2); RDW Standard Deviation 52.8 fL (35.1-46.3)
== END 2025-03-24 12:00 | disposition home or self-care (01) ==
LOC: ATC 01:39
PROVIDERS: Dermatology
DX: L73.2 Hidradenitis suppurativa (principal); Z88.1 Allergy status to other antibiotic agents; Z88.8 Allergy status to other drugs, medicaments and biological substances; Z79.899 Other long term (current) drug therapy; L98.412 Non-pressure chronic ulcer of buttock with fat layer exposed; J45.909 Unspecified asthma, uncomplicated; I48.91 Unspecified atrial fibrillation; I11.0 Hypertensive heart disease with heart failure; I50.9 Heart failure, unspecified; E78.2 Mixed hyperlipidemia; M19.90 Unspecified osteoarthritis, unspecified site; M10.9 Gout, unspecified; Z95.2 Presence of prosthetic heart valve
CPT/HCPCS: 85025; 96413; 96415; G0463; J7050; Q5103

== ENCOUNTER 2025-07-14 01:47 | Day surgery (SDC) | payer OTHER ==
[2025-07-14 08:44] VITALS: BP 150/63
[2025-07-14 09:32] LABS: BASOPHILS ABSOLUTE AUTO 0.11 K/mm3 (0.00-0.23); BASOPHILS PERCENT AUTO 1 % (0-2); EOSINOPHILS ABSOLUTE AUTO 0.25 K/mm3 (0.00-0.68); EOSINOPHILS PERCENT AUTO 3 % (0-6); Hematocrit 32.4 % (33.0-51.0); Hemoglobin 10.5 g/dL (11.5-16.0); IMMATURE GRAN ABSOLUTE AUTO 0.03 K/mm3 (0.00-0.10); IMMATURE GRAN PERCENT AUTO 0 % (0-1); LYMPHOCYTES ABSOLUTE AUTO 1.72 K/mm3 (0.84-5.20); LYMPHOCYTES PERCENT AUTO 19 % (21-46); MONOCYTES ABSOLUTE AUTO 0.90 K/mm3 (0.16-1.47); MONOCYTES PERCENT AUTO 10 % (4-13); Mean Corpuscular HGB Conc 32.4 g/dL (31.5-36.5); Mean Corpuscular Volume 97 fL (80-100); NEUTROPHILS ABSOLUTE AUTO 6.29 K/mm3 (1.96-9.15); NEUTROPHILS PERCENT AUTO 68 % (41-73); NRBC ABSOLUTE 0.00 K/mm3 (0.00-0.02); NRBC Auto 0.0 /100 WBC (0.0-0.2); Platelet Count 319 K/mm3 (150-400); RDW Coefficient Variation 14.3 % (11.7-14.2); RDW Standard Deviation 51.6 fL (35.1-46.3)
[2025-07-14 09:51] LABS: Alanine Aminotransfer (ALT/SGP 17.0 U/L (12-78); Albumin, Blood 2.4 g/dL (3.4-5.0); Albumin/Globulin Ratio 0.5 (0.8-1.8); Anion Gap 9.0 mmol/L (3-11); Aspartate Aminotrans (AST/SGOT 26.0 U/L (12-37); Bilirubin, Total 0.4 mg/dL (0.1-1.0); Blood Urea Nitrogen 28.0 mg/dL (8-24); CO2, Blood 24.0 mmol/L (21-32); Calcium, Blood 8.7 mg/dL (8.5-10.1); Chloride, Blood 102.0 mmol/L (98-108); Creatinine, Blood 0.94 mg/dL (0.40-1.00); Globulin, Blood 5.1 g/dL (2.2-4.0); Glucose, Blood 91.0 mg/dL (70-99); Potassium, Blood 5.2 mmol/L (3.5-5.5); Sodium, Blood 130.0 mmol/L (136-145); Total Protein, Blood 7.5 g/dL (6.4-8.2)
== END 2025-07-14 11:40 | disposition home or self-care (01) ==
LOC: ATC 01:47
PROVIDERS: Dermatology
DX: L73.2 Hidradenitis suppurativa (principal); Z88.1 Allergy status to other antibiotic agents; Z88.8 Allergy status to other drugs, medicaments and biological substances; Z85.3 Personal history of malignant neoplasm of breast
CPT/HCPCS: 36591; 80053; 85025; 96413; J7050; Q5103